=== PATIENT | female | born 1990 | race Caucasian/White ===

== ENCOUNTER → 2016-09-20 | Outpatient (CLI) | payer OTHER | END | disposition home or self-care (01) | LOC: C.PAPS 09:40 | PROVIDERS: ATTEND Physician Assistant | DX: Z12.4 Encounter for screening for malignant neoplasm of cervix (principal) ==

== ENCOUNTER 2018-10-15 19:50 | Inpatient (IN) ==
[2018-10-16] MEDS ORDERED: OXYTOCIN 30 UNITS/500 ML BAG IV PRN ×2 (00:39→05:32)
--- NOTE | 2018-10-16 00:42 | History & Physical Report ---
Date of Service October 16, 2018 Assessment & Plan (1) Normal labor and delivery: 28yo at 41.1 weeks GA. Labor 1. Fetus: Cat 1 2. Labor: Progressing un-augmented. 3. Vitals WNL 4. GBS neg 5. Pain: Epidural PRN. History of Present Illness Primary Care Provider: NO PCP 28yo at 41.1 weeks GA. Patient presented with contractions increasing in frequency and intensity. Denied VB, LOF. Good FM. uncomplicated to date. GBS - Allergies Allergy/AdvReac Type Severity Reaction Status Date / Time No Known Allergies Allergy Unverified 10/16/18 04:16 Home Medications Home Medications Medication Instructions Recorded Confirmed Type PNV cmb#95-ferrous fumarate-FA 1 tab PO DAILY 10/15/18 10/15/18 History [] Patient History Social History Preferred Language: Croatian Communication Ability: Effective Upper Trimmer Required: No Beliefs That Will Affect Care: None marital status: Current Living Situation: Spouse Other Information That Helps Us Care for You: No Feels Safe at Home: Yes Safety Concerns: Feels Safe At This Time Smoking Status: Never smoker Hx Alcohol Use: No Hx Substance Use: No Physical Exam Genitourinary: OB Exam Abdomen: + vertex Manual OB Exam: + cervical dilation OB Exam Monitor Tracing: + external FHT monitor used, + external uterine monitor used, + category I and + normal FHT variability Cervix: 1/70/-3 > 2/90/-3 > 4/90/-2 Results & Data Vital Signs (Past 12 Hours) Vital Signs Temp Pulse Resp BP 10/15/18 20:01 36.9 C 93 H 18 123/69
[2018-10-16] MEDS: LACTATED RINGER'S 1,000 ML IV PRN ×2 (00:55→04:15)
[2018-10-16] MEDS ORDERED: fentaNYL 2MCG/ML ROPIV 1.25MG/ML 100 ML BAG EPI ONE (00:57)
[2018-10-16] MEDS ORDERED: fentaNYL citrate 100 MCG/2 ML VIAL ONE (00:57)
[2018-10-16] MEDS ORDERED: BUPIVACAINE 0.25% 30 ML VIAL ONE (00:57)
[2018-10-16] MEDS ORDERED: ePHEDrine sulfate 50 MG/ML AMP ONE (00:57)
--- NOTE | 2018-10-16 00:59 | Anesthesiology Consultation ---
Date of Service October 16, 2018 Assessment & Plan Chart Review Chart Review: Acceptable Risk for Surgery, Patient NOT seen in Pre Admission Testing and Acceptable Risk for Labor Epidural Consults Requested none ASA ASA2 Proposed Anesthesia Anesthesia Type: Labor Epidural Risk / Benefits Reviewed With: PT / POA / Parent / Guardian, Accepts Plan and Informed Consent Obtained History Height/Weight Height: 5 ft 2 in Weight: 65.317 kg Medications Home Medications Medication Instructions Recorded Confirmed Last Taken PNV cmb#95-ferrous fumarate-FA 1 tab PO DAILY 10/15/18 10/15/18 10/15/18 09:00 [] NPO Date Last Intake of Fluids: 10/15/18 Time Last Intake of Fluids: 19:00 Date Last Intake of Solids: 10/15/18 Time Last Intake of Solids: 19:00 Exercise / Class Metabolic Activity II 4-5 Yardwork/Stairs/Walk up hill Past Anesthesia History No Hx of Anesthesia Complications and No Family Hx of Anesthesia Complications History of PONV No Hx of PONV and No Hx of Motion Sickness Social History Smoking Status: Never smoker Hx Alcohol Use: No Hx Substance Use: No Physical Exam Vital Signs Last Vital Signs Temp 36.9 C 10/15/18 20:01 Pulse 93 H 10/15/18 20:01 Resp 18 10/15/18 20:01 BP 123/69 10/15/18 20:01 Constitutional not obese ENMT Mouth: no dentition abnormality Thyromental Distance: > or= 3.5 Finger Breadths Mallampati Class: II Neck normal visual inspection and trachea midline; neck extension not limited Respiratory normal respiratory effort Auscultation: lungs clear to auscultation bilaterally Cardiovascular Rate/Rhythm: regular rate and regular rhythm Heart Sounds: no murmur Musculoskeletal Spine: normal cervical ROM Neurologic moves all extremities Motor/Sensory: no sensory deficit Psychiatric Orientation: alert and oriented x 3
[2018-10-16] MEDS ORDERED: PATIENT'S ALLERGY INFO NEEDS ENTERED SCH (01:00)
[2018-10-16 01:57] LABS: Hematocrit (blood only) 38.4 % (37-47); Hemoglobin 13.8 g/dL (12.0-16.0); Mean Corpuscular Hgb Conc 35.9 g/dL (32-36); Mean Corpuscular Volume 88.9 fL (80-100); Mean Platelet Volume 9.7 fL (7.4-10.4); Platelet Count 238 K/uL (130-400); RDW Coefficient of Variation 12.2 % (11.5-14.5); RDW Standard Deviation 39.2 fL (36.4-46.3); Red Blood Count 4.32 M/uL (4.2-5.4); White Blood Count 16.91 K/uL (4.8-10.8)
[2018-10-16] MEDS ORDERED: BENZOCAINE 20% AER SPR 82.5 GM CAN EXT PRN (05:32)
[2018-10-16] MEDS ORDERED: ACETAMINOPHEN 325 MG TAB PO PRN (05:32)
[2018-10-16] MEDS ORDERED: DIPHTHERIA/TETANUS/PERTUSSIS 0.5 ML SYR/VIAL IM ONE (05:32)
[2018-10-16] MEDS ORDERED: HYDROCORTISONE ACETATE 25 MG SUPP PR PRN (05:32)
[2018-10-16] MEDS ORDERED: BISACODYL 10 MG SUPP PR PRN (05:32)
[2018-10-16] MEDS ORDERED: SUPERCREAM 0.870% 15 GM JAR EXT PRN (05:32)
--- NOTE | 2018-10-16 08:26 | Anesthesia Procedure Note ---
Date of Service October 16, 2018 Anesthesia Post Epidural Note Vital Signs Vital Signs: Temp Pulse Resp BP Pulse Ox 37.1 C 105 H 18 93/50 L 94 10/16/18 03:30 10/16/18 08:21 10/16/18 03:00 10/16/18 08:21 10/16/18 05:12 Notes Mental Status: alert / awake / arousable Nausea / Vomiting: adequately controlled Pain: adequately controlled Airway Patency, RR, SpO2: stable & adequate BP & HR: stable & adequate Hydration State: stable & adequate Neuraxial Anesthesia: was administered and sensory block is resolving Anesthetic Complications: no major complications apparent and Pt Satisfied with anesthetic care Epidural: Removed without complications and With tip intact
[2018-10-16] MEDS: PRENATAL VITAMIN 1 TAB PO SCH (08:51)
[2018-10-16] MEDS: DOCUSATE SODIUM 100 MG CAP PO SCH ×2 (08:51→20:52)
[2018-10-16] MEDS: IBUPROFEN 600 MG TAB PO PRN ×3 (11:48→19:29)
[2018-10-17] MEDS: IBUPROFEN 600 MG TAB PO PRN ×4 (00:37→16:57)
--- NOTE | 2018-10-17 05:14 | Obstetrical Progress Note ---
Date of Service <Jas Palma MD - Last Filed: 10/17/18 07:31> October 17, 2018 Assessment & Plan <Jas Palma MD - Last Filed: 10/17/18 07:31> Day #:: 1 ([28 y/o s/p vaginal delivery at 41+1] -PPD#1 - GBS negative, Blood Type A+ - Feels well today. Eating well, voiding well, ambulating well. - Pain well controlled. - Routine post care - After discharge will have [address] Dominguez.) Subjective <Jas Palma MD - Last Filed: 10/17/18 07:31> Ambulation: ambulating normally Voiding: no voiding problems Diet Tolerance:: regular diet Lochia:: Moderate (like a heavy period) Feeding Type:: breast feeding Current Pain Level(1-10): 2 (cramping with ) Physical Exam <Jas Palma MD - Last Filed: 10/17/18 07:31> OB PE General: Alert, oriented. No acute distress. Cardiac: Regular rate and rhythm, no murmurs/rubs/gallops. Respiratory: Clear to auscultation anterior and posteriorly, no wheezes/rales/rhonchi. No increased work of breathing. Symmetrical chest rise. No respiratory distress. Abdomen: Soft, nontender, nondistended. Bowel sounds present. Uterus: Uterine fundus firm, palpable at the umbilicus. Lower Extremities: No lower extremity edema or swelling. No deep calf pain. Flor's negative bilaterally. OB ROS Denies fever, chills, sweats Denies shortness of breath, difficulty breathing, chest pain, palpitations, chest pressure. Denies breast pain. Denies dysuria. Denies headache. Results & Data <Jas Palma MD - Last Filed: 10/17/18 07:31> Vital Signs (Past 12 Hours) Vital Signs Temp Pulse Resp BP Pulse Ox 10/17/18 03:15 36.7 C 84 18 93/59 L 10/17/18 00:30 36.5 C 79 18 109/67 98 10/16/18 19:15 36.6 C 89 18 105/65 97 <Meera Erickson MD, FACOG - Last Filed: 10/17/18 07:58> Co-Signing Physician Notes Resident Physician Supervision Note: I interviewed and examined the patient. Discussed with Dr. Palma and agree with findings and plan as documented in the note. Any exceptions or clarifications are listed here: Dong well. Routine pp care. Documented By: Meera Erickson MD, FACOG
[2018-10-17 06:51] LABS: Hematocrit (blood only) 32.2 % (37-47); Hemoglobin 11.2 g/dL (12.0-16.0)
[2018-10-17] MEDS: DOCUSATE SODIUM 100 MG CAP PO SCH ×2 (08:21→20:30)
[2018-10-17] MEDS: PRENATAL VITAMIN 1 TAB PO SCH (08:21)
[2018-10-17] MEDS ORDERED: BISACODYL 5 MG TABEC PO SCH (20:00)
[2018-10-18] MEDS: IBUPROFEN 600 MG TAB PO PRN ×3 (00:25→11:20)
--- NOTE | 2018-10-18 07:26 | Obstetrical Progress Note ---
Date of Service October 18, 2018 Assessment & Plan (1) Normal labor and delivery: dc today Present on Admission?: Yes Subjective Ambulation: ambulating normally Voiding: no voiding problems Passing Gas:: Yes Diet Tolerance:: regular diet Lochia:: Small Feeding Type:: breast feeding Physical Exam Constitutional WD/WN, vitals as above Eyes PERRL, conjunctivae normal, anicteric sclerae Neck normal visual inspection Respiratory normal respiratory effort and able to speak in complete sentences; no respiratory distress and no labored breathing Cardiovascular Rate/Rhythm: regular rate and regular rhythm Extremities: no edema Chest (Breasts) Chest: normal inspection of chest Gastrointestinal (Abdomen) Inspection/Auscultation: abdomen normal to inspection Soft, postgravid Psychiatric A+Ox3, euthymic affect Genitourinary OB Exam Abdomen: + fundal height Fundus: + firm and + relation to umbilicus (fundus just below umbilicus); not tender Results & Data Vital Signs (Past 12 Hours) Vital Signs Temp Pulse Resp BP Pulse Ox 10/17/18 23:10 36.5 C 80 16 108/71 98
[2018-10-18] MEDS: PRENATAL VITAMIN 1 TAB PO SCH (08:35)
[2018-10-18] MEDS: DOCUSATE SODIUM 100 MG CAP PO SCH (08:35)
--- NOTE | 2018-10-20 15:53 | Delivery Summary ---
DATE OF OPERATION: 10/16/2018 PROCEDURE: Normal spontaneous vaginal delivery with right labial laceration. SURGEON: Meet Dominguez MD PREOPERATIVE DIAGNOSES: 1. Single intrauterine at 41 weeks 1 day gestational age. 2. Labor. POSTOPERATIVE DIAGNOSES: 1. Single intrauterine at 41 weeks 1 day gestational age. 2. Labor. 3. Status post delivery. ESTIMATED BLOOD LOSS: 300 mL. DRAINS: None. FLUIDS: Continuous lactated ringer. URINE OUTPUT: Not measured. COMPLICATIONS: None. FINDINGS: Viable with weight pending and Apgars of 8 and 9 at 1 and 5 minutes respectively. INDICATIONS: Holly is a 28-year-old G1, P0, admitted at 41 weeks 1 day gestational age in labor. At first evaluation, the patient was found to be 1 cm dilated, 70% effaced, -3 station. The patient was reevaluated, approximately 2 hours later, was noted to be 2 cm dilated, 70% effaced, -2 station. An additional 2 hours was allowed for reevaluation per patient desire and at that time she was found to be 4 cm dilated, 90% effaced, -2 station. The patient was admitted at that time. The patient continued to progress in labor without augmentation. She ultimately decided to proceed with placement of epidural for anesthesia and progressed in labor to complete-complete, +2, at which time she felt the urge to push. DESCRIPTION OF PROCEDURE: The patient progressed to 10 cm dilated, 100% effaced, +2 station, pushed over intact perineum with epidural anesthesia and delivered a viable with weight and Apgars as noted above. The head of the delivered in JOSE position, rest into right transverse. Body and shoulders quickly followed. The was noted to be vigorous soon after delivery and a 1-minute delayed cord clamping was initiated. The cord was then double clamped and cut, and the remained on maternal abdomen. Cord blood was obtained. Attention was then turned to delivery of the placenta, which was delivered intact with 3-vessel cord, gentle cord traction. On inspection of the perineum, vagina, and cervix, there was noted to be a right labial laceration which was repaired with interrupted stitch of 3-0 Vicryl. Needle, sponge and instrument counts were correct at the completion of the case. Both mother and were stable in the immediate post-delivery. I attest to the content of the Intraoperative Record and any orders documented therein. Any exception s are noted below.
== END 2018-10-18 12:15 | disposition home or self-care (01) | DRG 807 ==
LOC: OPB 19:50 → 4S1 19:52 → 4S2 10-16 09:09